=== PATIENT | female | born 1975 | race Caucasian/White ===

== ENCOUNTER 2017-07-19 10:05 | Outpatient (CLI) | payer OTHER ==
[~2017-07-19 10:05] MED LIST: ALBUTEROL0.63 MG/3; AMPICILLIN125 MG/5 M; BUDEO.25; SINGULAIR10 MG PO; ULTRACET PO; [UNRECOGNIZED DRUG - OTHER]
== END 2017-07-19 11:32 | disposition home or self-care (01) ==
LOC: MAMO-SONO 10:05
DX: Z12.31 Encounter for screening mammogram for malignant neoplasm of breast (principal)

== ENCOUNTER 2017-07-19 10:24 | Outpatient (CLI) | payer OTHER | END 2017-07-19 11:35 | disposition home or self-care (01) | LOC: SONOGRAMA 10:24 → RAD 10:24 | DX: Z13.6 Encounter for screening for cardiovascular disorders (principal) ==

== ENCOUNTER 2018-09-09 11:32 | Outpatient (CLI) | payer OTHER | END 2018-09-09 15:51 | disposition home or self-care (01) | LOC: TOM 11:32 | DX: N63.10 Unspecified lump in the right breast, unspecified quadrant (principal); N63.20 Unspecified lump in the left breast, unspecified quadrant; Z12.31 Encounter for screening mammogram for malignant neoplasm of breast; J44.9 Chronic obstructive pulmonary disease, unspecified; F17.200 Nicotine dependence, unspecified, uncomplicated ==

== ENCOUNTER → 2018-10-10 | Outpatient (CLI) | payer OTHER | END | disposition home or self-care (01) | LOC: RAD 12:09 | DX: R92.0 Mammographic microcalcification found on diagnostic imaging of breast (principal); N63.13 Unspecified lump in the right breast, lower outer quadrant; M79.601 Pain in right arm ==

== ENCOUNTER 2019-02-17 16:56 | Emergency (ER) | payer OTHER ==
[~2019-02-17] VITALS: Ht 157.5 cm; Wt 73.5 kg
[2019-02-17] MEDS ORDERED: [UNRECOGNIZED DRUG - OTHER] (17:47)
== END 2019-02-17 20:06 | disposition home or self-care (01) ==
LOC: ER 16:56
DX: J45.998 Other asthma (principal)

== ENCOUNTER → 2020-02-16 09:33 | Outpatient (CLI) | payer OTHER ==
[~2020-02-16 09:33] MED LIST changes: +[UNRECOGNIZED DRUG - OTHER]
== END | disposition home or self-care (01) ==
LOC: LAB 09:33
PROVIDERS: ATTEND Surgery
DX: D64.89 Other specified anemias (principal); I10 Essential (primary) hypertension; D68.8 Other specified coagulation defects; N39.0 Urinary tract infection, site not specified; E11.00 Type 2 diabetes mellitus with hyperosmolarity without nonketotic hyperglycemic-hyperosmolar coma (NKHHC); E04.1 Nontoxic single thyroid nodule; E78.2 Mixed hyperlipidemia; M06.4 Inflammatory polyarthropathy

== ENCOUNTER 2020-02-16 10:30 | Outpatient (CLI) | payer OTHER | END 2020-02-16 10:49 | disposition home or self-care (01) | LOC: RAD 10:30 | PROVIDERS: ATTEND General Practice | DX: N64.89 Other specified disorders of breast (principal); Z12.31 Encounter for screening mammogram for malignant neoplasm of breast; Z13.220 Encounter for screening for lipoid disorders; Z13.89 Encounter for screening for other disorder; J45.998 Other asthma; F17.200 Nicotine dependence, unspecified, uncomplicated; M79.604 Pain in right leg; Z76.0 Encounter for issue of repeat prescription ==

== ENCOUNTER 2020-04-12 15:34 | Outpatient (CLI) | payer OTHER | END 2020-04-12 15:47 | disposition home or self-care (01) | LOC: MRI 15:34 | PROVIDERS: ATTEND General Practice | DX: M54.5 Low back pain (principal); M25.552 Pain in left hip | CPT/HCPCS: 72148 ==

== ENCOUNTER → 2020-04-15 | Outpatient (CLI) | payer OTHER | END | disposition home or self-care (01) | LOC: RAD 14:58 | DX: J44.9 Chronic obstructive pulmonary disease, unspecified (principal) ==

== ENCOUNTER 2021-01-14 10:03 | Day surgery (SDC) | payer OTHER | END 2021-01-14 12:55 | disposition home or self-care (01) | LOC: AMB-ENDOS 10:03 | PROVIDERS: ATTEND Surgery | DX: K62.89 Other specified diseases of anus and rectum (principal); Z20.822 Contact with and (suspected) exposure to COVID-19; Z12.11 Encounter for screening for malignant neoplasm of colon ==

== ENCOUNTER 2021-05-21 08:59 | Outpatient (CLI) | payer OTHER | END 2021-05-21 09:14 | disposition home or self-care (01) | LOC: MAMO-SONO 08:59 | PROVIDERS: ATTEND General Practice | DX: N60.11 Diffuse cystic mastopathy of right breast (principal); N60.12 Diffuse cystic mastopathy of left breast; Z12.31 Encounter for screening mammogram for malignant neoplasm of breast; N64.89 Other specified disorders of breast; Z13.89 Encounter for screening for other disorder; Z13.220 Encounter for screening for lipoid disorders; Z11.3 Encounter for screening for infections with a predominantly sexual mode of transmission; M79.604 Pain in right leg; F17.200 Nicotine dependence, unspecified, uncomplicated; Z76.0 Encounter for issue of repeat prescription | CPT/HCPCS: 73721 ==

== ENCOUNTER → 2021-05-21 09:22 | Outpatient (CLI) | payer OTHER | END | disposition home or self-care (01) | LOC: LAB 09:22 | PROVIDERS: ATTEND General Practice | DX: N64.89 Other specified disorders of breast (principal); F17.200 Nicotine dependence, unspecified, uncomplicated; M79.604 Pain in right leg; Z13.89 Encounter for screening for other disorder; Z76.0 Encounter for issue of repeat prescription; Z13.220 Encounter for screening for lipoid disorders; Z11.3 Encounter for screening for infections with a predominantly sexual mode of transmission ==

== ENCOUNTER 2021-07-18 10:29 | Outpatient (CLI) | payer OTHER | END 2021-07-18 10:32 | disposition home or self-care (01) | LOC: SONOGRAMA 10:29 | PROVIDERS: ATTEND Surgery | DX: N60.11 Diffuse cystic mastopathy of right breast (principal); N60.12 Diffuse cystic mastopathy of left breast; D24.2 Benign neoplasm of left breast ==

== ENCOUNTER 2021-09-04 21:32 | Emergency (ER) | payer OTHER ==
[~2021-09-04] VITALS: Ht 157.5 cm; Wt 73.0 kg
[2021-09-04] MEDS ORDERED: MONTELUKAST SOD10 MG (21:45)
== END 2021-09-05 01:26 | disposition home or self-care (01) ==
LOC: ER 21:32
DX: B34.9 Viral infection, unspecified (principal); Z20.822 Contact with and (suspected) exposure to COVID-19; Z88.6 Allergy status to analgesic agent

== ENCOUNTER 2022-07-17 12:14 | Outpatient (CLI) | payer OTHER ==
[~2022-07-17 12:14] MED LIST changes: +MONTELUKAST SOD10 MG
== END 2022-07-17 12:24 | disposition home or self-care (01) ==
LOC: TOM 12:14
PROVIDERS: ATTEND General Practice
DX: R50.9 Fever, unspecified (principal); R51.9 Headache, unspecified; R42 Dizziness and giddiness

== ENCOUNTER 2023-04-17 21:21 | Emergency (ER) | payer OTHER ==
[~2023-04-17] VITALS: Ht 157.5 cm; Wt 75.3 kg
[2023-04-18 00:08] LABS: HEMATOCRIT 44.5 % (36.0-45.00); HEMOGLOBIN 15.4 g/dL (12.0-15.00); MEAN CELL VOLUME 92.7 fL (80.00-100.00); MEAN CORPUSCULAR HEMOGLOBIN 32.2 pg (27.00-32.0); MEAN CORPUSCULAR HGB CONC 34.7 g/dl (32.0-36.0); PLATELET COUNT 179 K/uL (150-450); RED CELL DISTRIBUTION WIDTH 13.1 % (11.5-14.5)
[2023-04-18] MEDS ORDERED: ZITHROMAX500 MG PO (02:01)
[2023-04-18] MEDS ORDERED: TUSNEL LIQUID178 ML PO (02:01)
[2023-04-18] MEDS ORDERED: ALBUTEROL1.25 MG/3 IH (02:01)
== END 2023-04-18 02:32 | disposition home or self-care (01) ==
LOC: ER 21:21
PROVIDERS: General Practice
DX: J45.901 Unspecified asthma with (acute) exacerbation (principal); Z20.822 Contact with and (suspected) exposure to COVID-19; Z88.6 Allergy status to analgesic agent

== ENCOUNTER → 2024-07-19 09:12 | Outpatient (CLI) | payer OTHER ==
[~2024-07-19 09:12] MED LIST changes: +ALBUTEROL1.25 MG/3 IH; +ALBUTEROL2.5 MG/3 M IH; +MEDROLPACK PO; +SYMBICORT 16010.2 GM; +TUSNEL LIQUID178 ML PO; +ZITHROMAX500 MG PO; +ZYRTEC10 M3 PO
[2024-07-19 10:22] LABS: PH,URINE 5.5 (5.0-8.0); URINE APPEARANCE Clear; URINE BILIRRUBIN Negative (NEGATIVE); URINE BLOOD Negative; URINE COLOR Yellow; URINE GLUCOSE Negative (NEGATIVE); URINE KETONE Negative (NEGATIVE); URINE LEUKOCYTE Negative; URINE NITRATE Negative; URINE PROTEIN Negative (NEGATIVE); URINE UROBILINOGEN 0.2 E.U./dl
[2024-07-19 10:23] LABS: URINE BACTERIA 467.5 uL (0.0-1933); URINE EPITHELIAL CELLS 12.4 uL (0.0-38.8); URINE RBC 9.7 uL (0.0-20.8)
[2024-07-19 10:35] LABS: URINE CAST 0.14 uL (0.0-1.40); URINE WBC 1.2 uL (0.0-23.2)
[2024-07-19 10:59] LABS: HEMATOCRIT 45.3 % (36.0-45.00); HEMOGLOBIN 15.1 g/dL (12.0-15.00); MEAN CELL VOLUME 94.3 fL (80.00-100.00); MEAN CORPUSCULAR HEMOGLOBIN 31.4 pg (27.00-32.0); MEAN CORPUSCULAR HGB CONC 33.3 g/dl (32.0-36.0); PLATELET COUNT 243 K/uL (150-450)
[2024-07-19 11:23] LABS: ERYTHROCYTE SEDIMENTATION RATE 24 mm/hr
[2024-07-19 11:24] LABS: RF NEGATIVE (NEGATIVE)
[2024-07-19 11:27] LABS: ALBUMIN 3.7 gm/dL (3.4-5.0); BILIRUBIN TOTAL 0.59 mg/dL (0.3-1.2); CALCIUM 8.9 mg/dL (8.5-10.1); CHOL HDL RATIO 4.3 (0-5.0); CREATININE SERUM 0.63 mg/dL (0.55-1.02); GFR 100.44; GLOBULINA 3.4 G/DL (2.4-3.5); POTASSIUM 3.98 mEq/L (3.5-5.1); TOTAL PROTEIN 7.1 gm/dL (6.4-8.2); TSH 1.67 uIU/mL (0.358-3.74)
[2024-07-19 11:33] LABS: C-REACTIVE PROTEIN 0.7 MG/DL (0.00-0.29)
[2024-07-19 15:42] LABS: RAPID PLASMA REAGIN NONREACTIVE BY RPR (NONREACTIVE)
[2024-07-20 08:07] LABS: hav igm Negative (Negative); hcv Non Reactive (Non Reactive); hep b c Negative (Negative); hep b s ag Negative (Negative)
[2024-07-20 12:04] LABS: PROGESTERONA 0.1 ng/mL (.)
[2024-07-22 00:08] LABS: ESTROGENO 303 pg/mL (.)
== END | disposition home or self-care (01) ==
LOC: LAB 09:12
DX: N95.9 Unspecified menopausal and perimenopausal disorder (principal); M25.50 Pain in unspecified joint; Z11.3 Encounter for screening for infections with a predominantly sexual mode of transmission; Z12.11 Encounter for screening for malignant neoplasm of colon; Z12.31 Encounter for screening mammogram for malignant neoplasm of breast; Z13.21 Encounter for screening for nutritional disorder; Z12.4 Encounter for screening for malignant neoplasm of cervix; Z13.1 Encounter for screening for diabetes mellitus; Z13.220 Encounter for screening for lipoid disorders; Z13.29 Encounter for screening for other suspected endocrine disorder; J45.909 Unspecified asthma, uncomplicated; N63.0 Unspecified lump in unspecified breast; R97.0 Elevated carcinoembryonic antigen [CEA]; R97.1 Elevated cancer antigen 125 [CA 125]

== ENCOUNTER 2024-07-19 09:59 | Outpatient (CLI) | payer OTHER | END 2024-07-19 10:16 | disposition home or self-care (01) | LOC: MAMO-SONO 09:59 | PROVIDERS: ATTEND General Practice | DX: N63 Unspecified lump in breast (principal); N63.12 Unspecified lump in the right breast, upper inner quadrant; N63.20 Unspecified lump in the left breast, unspecified quadrant; R10.2 Pelvic and perineal pain; R10.9 Unspecified abdominal pain; M94.0 Chondrocostal junction syndrome [Tietze]; J45.909 Unspecified asthma, uncomplicated ==

== ENCOUNTER 2024-08-23 08:59 | Outpatient (CLI) | payer OTHER ==
[2024-08-23 10:06] LABS: HEMATOCRIT 43.4 % (36.0-45.00); HEMOGLOBIN 14.9 g/dL (12.0-15.00); MEAN CELL VOLUME 92.6 fL (80.00-100.00); MEAN CORPUSCULAR HEMOGLOBIN 31.8 pg (27.00-32.0); MEAN CORPUSCULAR HGB CONC 34.4 g/dl (32.0-36.0); PLATELET COUNT 261 K/uL (150-450); RED BLOOD COUNT 4.69 M/uL (4.00-6.00); RED CELL DISTRIBUTION WIDTH 13.4 % (11.5-14.5)
[2024-08-23 11:15] LABS: MYCOPLASMA PNEUMONIAE IGM NON REACTIVE (NO REACTIVE)
== END 2024-08-23 09:13 | disposition home or self-care (01) ==
LOC: LAB 08:59
PROVIDERS: ATTEND General Practice
DX: J45.20 Mild intermittent asthma, uncomplicated (principal); J06.9 Acute upper respiratory infection, unspecified; R09.81 Nasal congestion; R05.1 Acute cough; Z20.822 Contact with and (suspected) exposure to COVID-19; A49.3 Mycoplasma infection, unspecified site; B34.9 Viral infection, unspecified; J11.1 Influenza due to unidentified influenza virus with other respiratory manifestations; I06.9 Rheumatic aortic valve disease, unspecified

== ENCOUNTER 2024-09-07 21:07 | Emergency (ER) | payer OTHER ==
[~2024-09-07] VITALS: Ht 157.5 cm; Wt 73.5 kg
[2024-09-07] MEDS ORDERED: 0.9 % SODIUM CHLORIDE 1,000 ML IV STA ×2 (22:00→22:50)
[2024-09-07] MEDS ORDERED: FAMOTIDINE/PF 20 MG/2 ML VIAL ONE (22:34)
[2024-09-07] MEDS ORDERED: ONDANSETRON HCL 2 MG/ML VIAL ONE (22:34)
[2024-09-07] MEDS ORDERED: FAMOTIDINE/PF 20 MG/2 ML VIAL IV PUSH ONE (22:45)
[2024-09-07] MEDS ORDERED: ONDANSETRON HCL 2 MG/ML VIAL IV ONE (22:45)
[2024-09-07 23:09] LABS: HEMATOCRIT 50.8 % (36.0-45.00); HEMOGLOBIN 17.3 g/dL (12.0-15.00); MEAN CELL VOLUME 93.7 fL (80.00-100.00); MEAN CORPUSCULAR HEMOGLOBIN 31.8 pg (27.00-32.0); PLATELET COUNT 220 K/uL (150-450); RED BLOOD COUNT 5.42 M/uL (4.00-6.00); RED CELL DISTRIBUTION WIDTH 13.1 % (11.5-14.5)
[2024-09-07 23:29] LABS: INR 1.08; PARTIAL THROMBOPLASTIN TIME 31.7 SECONDS (22.0-34.0); PROTHROMBIN TIME 11.7 SECONDS (9.0-11.5)
[2024-09-07 23:34] LABS: ALBUMIN 4.2 gm/dL (3.4-5.0); BILIRUBIN TOTAL 0.5 mg/dL (0.3-1.2); CALCIUM 9.6 mg/dL (8.5-10.1); CREATININE SERUM 0.99 mg/dL (0.55-1.02); GFR 59.62; GLOBULINA 4.5 G/DL (2.4-3.5); POTASSIUM 3.31 mEq/L (3.5-5.1); TOTAL PROTEIN 8.7 gm/dL (6.4-8.2)
[2024-09-07] MEDS ORDERED: DICYCLOMINE HCL 20 MG TABLET PO ONE (23:45)
[2024-09-07] MEDS ORDERED: DICYCLOMINE HCL 10 MG CAPSULE PO ONE (23:47)
== END 2024-09-08 01:02 | disposition home or self-care (01) ==
LOC: ER 21:09
PROVIDERS: Emergency Medicine
DX: R19.7 Diarrhea, unspecified (principal); K30 Functional dyspepsia; Z20.822 Contact with and (suspected) exposure to COVID-19; Z88.6 Allergy status to analgesic agent